=== PATIENT | male | born 1975 | race Caucasian/White ===

== ENCOUNTER 2022-02-27 07:51 | Outpatient (RCR) | payer BC, SELFPAY ==
--- NOTE | 2022-02-27 08:41 | PTOPEVAL1 ---
Assessment and note entered by Vanessa Gomez DPT Evaluation Information Assessment Status Evaluation Diagnosis 02/19/2022 Onset Vertigo Subjective Information Pt reports that symptoms have been going on for about 2 months now. He reports symptoms as room- spinning when rolling in bed and when looking up but feels fine generally with all other movements. Symptoms last about 15 sec, and happen more when rolling to his left side. He reports no hearing or vision changes. He reports no falls from these episodes. He reports symptoms started with insidious onset (no falls, no recent sickness). Pt wants to get rid of symptoms with activities. Reported Pain Level Pain Score 0: Self Report Assessment PT Clinical Summary Pt presents to PT for vertigo with positional changes out of bed and when looking up starting about 2 months ago. 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 He was educated about the pathophysiology of BPPV and was treated with the R John x 3. After canalithic repositioning x 3, pt no longer displayed nystagmus or vertiginous symptoms with testing. The pt was provided with a handout to perform the R John on his own at home. PT plans to follow-up with pt in the following days to assess if symptoms remain for potential follow-up. Plan of Care Interventions Neuro Re-education,Patient/Caregiver Educati, Therapeutic Activities,Therapeutic Exercise PT Services Indicated Yes Treatment Frequency and 1 additional visit as needed Duration These treatments will address the objective and functional deficits as defined above. The patient will be advanced safely and appropriately in order for the patient to progress towards his/her prior level of function. Additional exercises will be introduced and as well as a comprehensive home exercise program upon discharge, if needed, ?to ensure carryover of functional gains achieved in the clinic. This treatment plan has been reviewed and agreement upon by the patient.
--- NOTE | 2022-04-17 15:05 | PTOPDC ---
Assessment and note entered by Lexi Mei, PT Evaluation Information Assessment Status Discharge - Pt Not Presen Diagnosis Vertigo Onset 02/19/22 Subjective Information Pt not present for discharge summary. Assessment PT Clinical Summary Pt attended 1 skilled PT visit for vertigo and had resolved nystagmus and vertigo symptoms after cannalith repositioning treatment x 3. He is discharged. Plan of Care Treatment Frequency and Discharge Duration
== END 2022-02-27 19:00 | disposition home or self-care (01) ==
LOC: CHSPT 07:51
PROVIDERS: PCP Family Medicine; Visit Provider Otolaryngology
DX: H81.10 Benign paroxysmal vertigo, unspecified ear (principal)
CPT/HCPCS: 97110; 97161